=== PATIENT | female | born 1975 | race Two or more races ===

== ENCOUNTER 2020-08-22 14:22 | Emergency (ER) | payer MEDICAID ==
[~2020-08-22] VITALS: Ht 154.9 cm; Wt 77.1 kg
[2020-08-22] MEDS ORDERED: MUPI22OI7 MC (15:28)
[2020-08-22] MEDS ORDERED: CEPH500C2 PO (15:28)
[2020-08-22] MEDS ORDERED: TDAP [DIPH/PERTUSSIS/TET] 0.5 ML VIAL IM ONE (15:28)
[2020-08-22] MEDS ORDERED: MUPIROCIN OINT 2% 22 GM TUBE ONE (15:30)
[2020-08-22] MEDS: TDAP [DIPH/PERTUSSIS/TET] 0.5 ML VIAL IM ONE (15:32)
[2020-08-22] MEDS: MUPIROCIN OINT 2% 22 GM TUBE TP ONE (15:33)
--- NOTE | 2020-08-22 15:33 | NUR ---
REST OF MEDICATION WAS DISPENSED PER PROVIDER. WOUND CARE PROVIDED WELL WOUND CARE INSTRUCTION.
--- NOTE | 2020-08-22 15:34 | NUR ---
Patient discharged to home in stable condition. Written and verbal after care instructions given. Patient verbalizes understanding of instruction. Pt ambulatory with a steady gait
[2020-08-22 15:35] VITALS: BP 137/93
== END 2020-08-22 15:35 | disposition home or self-care (01) ==
LOC: ER 14:27
DX: T24.231A Burn of second degree of right lower leg, initial encounter (principal); L03.115 Cellulitis of right lower limb; I10 Essential (primary) hypertension; Z98.890 Other specified postprocedural states; X19.XXXA Contact with other heat and hot substances, initial encounter; Y93.89 Activity, other specified; Y92.89 Other specified places as the place of occurrence of the external cause; Y99.8 Other external cause status
CPT/HCPCS: 90715